=== PATIENT | male | born 1980 | race Caucasian/White ===

== ENCOUNTER 2023-04-19 21:07 | Emergency (ER) | payer OTHER ==
[~2023-04-19] VITALS: Ht 177.8 cm; Wt 99.8 kg
[2023-04-19 21:26] VITALS: BP 126/81; PULSE 118; RESP 16; TEMP 98.1; O2SAT 99
== END 2023-04-19 22:21 ==
LOC: MED 21:07
DX: V49.88XA Car occupant (driver) (passenger) injured in other specified transport accidents, initial encounter; Y93.89 Activity, other specified; Y92.89 Other specified places as the place of occurrence of the external cause; Y99.8 Other external cause status
CPT/HCPCS: 81025; 99283